=== PATIENT | female | born 1970 | race Caucasian/White ===

== ENCOUNTER → 2016-08-26 | Outpatient (CLI) | payer BC | LOC: LAB 13:46 | PROVIDERS: ATTEND Internal Medicine Endocrinology, Diabetes & Metabolism | DX: E89.0 Postprocedural hypothyroidism (principal); Z85.850 Personal history of malignant neoplasm of thyroid | CPT/HCPCS: 36415; 84436; 84443 ==

== ENCOUNTER → 2016-10-15 | Outpatient (CLI) | payer BC ==
[~2016-10-15] MED LIST: ACET-789 PO; IBP800T PO; LEVO125T70 PO
--- NOTE | 2016-10-16 08:56 | Diagnostic Imaging Report ---
INDICATION: Screening mammogram COMPARISON: 07/21/2013 and 10/02/2015 The current study was also evaluated with a Computer Aided Detection (CAD) system. FINDINGS: Multiple mammographic views of the breasts were obtained. The breast tissue is heterogeneously dense, which may lower the sensitivity of mammography. There is no dominant mass, suspicious cluster of microcalcifications or other evidence to indicate malignancy. There has been no significant change from prior mammograms. IMPRESSION: Stable mammogram without evidence of malignancy. BI-RADS Category 1: Negative Result letter will be mailed to the patient. Follow-up: Yearly mammogram NOTE: Keep in mind that about 10% of breast cancers will not be identified on mammography. Further evaluation of a palpable mass not seen on mammography should be based on clinical grounds. Dictated by: Dictated on workstation # [id number]
== END ==
LOC: RAD 08:17
PROVIDERS: ATTEND Family Medicine
DX: Z12.31 Encounter for screening mammogram for malignant neoplasm of breast (principal)